=== PATIENT | male | born 1940 | race Caucasian/White ===

== ENCOUNTER 2017-01-05 13:33 | Emergency (ER) | payer MEDICARE, OTHER ==
--- NOTE | 2017-01-05 14:52 | ED Physician Documentation ---
PD HPI UPPER EXT INJURY - Stated complaint Stated Complaint: HAND INJ - Chief complaint Chief Complaint: Ext Problem - History obtained from History obtained from: Patient, Family - History of Present Illness Location: Left, Hand Type of injury: Fall Where injury occurred: Home Timing - onset: Last night Timing - duration: Hours Timing - details: Abrupt onset, Still present Improved by: Rest, Ice, Immobilization Worsened by: Moving, Palpating Associated symptoms: Swelling, Discolored Contributing factors: No: Anticoagulated Similar symptoms before: Has not had sx before Recently seen: Not recently seen - Additonal information Additional information: 76-year-old male bent over to give his grandchild guille patterson last night when he bent over he continued going over and fell onto his outstretched left hand. He has been swelling in the hand especially toward the distal left fifth metatarsal and he has some swelling with a ring that is fitting tightly. He is able to flex and extend at the wrist elbow and shoulder without difficulty. Review of Systems Constitutional: denies: Fever Eyes: denies: Decreased vision Ears: denies: Ear pain Nose: denies: Congestion Throat: denies: Sore throat Respiratory: denies: Cough GI: denies: Vomiting Skin: denies: Rash Musculoskeletal: reports: Extremity pain, Joint pain, Extremity swelling, Joint swelling. denies: Neck pain, Back pain Neurologic: denies: Generalized weakness, Focal weakness, Numbness PD PAST MEDICAL HISTORY - Past Medical History Cardiovascular: Hypertension, High cholesterol Endocrine/Autoimmune: Type 2 diabetes, HyPOthyroidism - Present Medications Home Medications: Ambulatory Orders Medication Instructions Recorded Confirmed Chlorthalidone 25 mg PO DAILY 01/05/17 01/05/17 Citalopram [CeleXA] 40 mg PO DAILY 01/05/17 01/05/17 Gabapentin 300 mg PO BID 01/05/17 01/05/17 Insulin Aspart (Vial) [NovoLOG 25 units SQ QDBREAKFAST 01/05/17 01/05/17 (VIAL FOR ED USE)] Insulin Glargine [Lantus] 90 units SQ DAILY PM 01/05/17 01/05/17 Levothyroxine [Synthroid] 0.15 mg PO DAILY 01/05/17 01/05/17 Lisinopril 20 mg PO DAILY 01/05/17 01/05/17 Pantoprazole [Protonix] 40 mg PO DAILY 01/05/17 01/05/17 Potassium Chloride 10 meq PO DAILY 01/05/17 01/05/17 Simvastatin [Zocor] 20 mg PO DAILY 01/05/17 01/05/17 - Allergies Allergies/Adverse Reactions: Allergies Allergy/AdvReac Type Severity Reaction Status Date / Time fosinopril Allergy Edema Verified 01/05/17 13:51 - Social History Does the pt smoke?: No Smoking Status: Never smoker PD ED PE NORMAL - Vitals Vital signs reviewed: Yes (hypertensive) - General General: No acute distress, Well developed/nourished - HEENT HEENT: Atraumatic, PERRL, EOMI - Neck Neck: Supple, no meningeal sign - Respiratory Respiratory: No respiratory distress - Derm Derm: Normal color, Warm and dry, No rash - Extremities Extremities: Other (There is swelling to the left hand dorsally and ecchymosis is visible over the palmar surface. There is tenderness over the distal 5th MT. ROM of the fingers are preserved. distal n/v is intact. The wedding band is fitting tightly now and will need to be cut off. There is no current restriction to the ROM of the fingers. ) Results - Vitals Vitals: Vital Signs - 24 hr 01/05/17 13:37 Temperature 36.5 C Heart Rate 53 L Respiratory 16 Rate Blood Pressure 139/66 H O2 Saturation 96 Oxygen O2 Source Room air Procedures - Splint (location) left hand Splint applied by: Tech Type of splint: Fiberglass, Volar cock up Other: Patient tolerated well, No complications, Neurovascular intact, Good alignment PD MEDICAL DECISION MAKING - ED course Complexity details: reviewed results, re-evaluated patient, considered differential, d/w patient, d/w family ED course: 76-year-old male with a FOOSH and some hand swelling has a ring that is fitting tightly and this is cut off with a ring cutter he is placed into a volar splint there is no evidence of fracture on x-ray. Departure - Departure Disposition: 01 Home, Self Care Clinical Impression: Contusion of left hand including fingers Qualifiers: Encounter type: initial encounter Qualified Code(s): S60.222A - Contusion of left hand, initial encounter; S60.00XA - Contusion of unspecified finger without damage to nail, initial encounter Condition: Stable Instructions: ED Contusion Hand Follow-Up: Your, doctor [Other]
[2017-01-05 15:13] VITALS: BP 111/56
--- NOTE | 2017-01-05 15:14 | XRAY Preliminary Report ---
Exam: XR Hand 3 View LT IMPRESSION: No acute bony abnormality identified in the left hand. [facility] SITE ID: [id number]
--- NOTE | 2017-01-05 15:16 | XRAY Report ---
EXAM: LEFT HAND RADIOGRAPHY EXAM DATE: 01/05/2017 02:29 PM. CLINICAL HISTORY: Fall on outstretched hand. Pain at distal metacarpals. Patient was unable to remove his ring. COMPARISON: None. TECHNIQUE: 3 views. FINDINGS: Bones: No fractures or bony destructive lesions noted. Metallic ring obscures part of the fourth prox imal phalanx. Joints: Normal. No subluxations. Soft Tissues: There may be mild diffuse soft tissue swelling. IMPRESSION: No acute bony abnormality identified in the left hand. [facility] Referring Provider Line: [phone] SITE ID: [id number]
== END 2017-01-05 15:16 | disposition home or self-care (01) ==
LOC: ED 13:33
DX: S60.222A Contusion of left hand, initial encounter (principal); W18.30XA Fall on same level, unspecified, initial encounter; Y92.009 Unspecified place in unspecified non-institutional (private) residence as the place of occurrence of the external cause; I10 Essential (primary) hypertension; E78.00 Pure hypercholesterolemia, unspecified; E03.9 Hypothyroidism, unspecified; E11.8 Type 2 diabetes mellitus with unspecified complications; Z79.4 Long term (current) use of insulin
CPT/HCPCS: 29125; 99283